=== PATIENT | female | born 1990 | race Two or more races ===

== ENCOUNTER 2019-10-28 22:59 | Emergency (ER) | payer SELFPAY ==
[2019-10-29] MEDS ORDERED: NORMAL SALINE 1000 ML 1,000 ML IV ONE (02:05)
[2019-10-29] MEDS ORDERED: ONDANSETRON HCL INJ/PF 4 MG/2 ML SDV IV ONE (02:06)
[2019-10-29] MEDS ORDERED: ACETAMINOPHEN 325 MG TABLET PO ONE (02:06)
--- NOTE | 2019-10-29 02:11 | ER Document Report ---
ED General - Related Data Home Medications: None <HEATHER REDMAN - Last Filed: 10/29/19 02:06> <ERVIN SIMPSON Alida - Last Filed: 10/29/19 03:42> - General Chief Complaint: Shortness Of Breath Stated Complaint: SHORTNESS OF BREATH, HEADACHE, VOMITING Time Seen by Provider: 10/29/19 01:17 - HPI Notes: Patient is a 28-year-old female who presents to the emergency department for evaluation. She just got back from [place], where she attended her grandfather's . Today she complains of chills, night sweats, chest pain, shortness of breath, back pain, nausea, vomiting, diarrhea, anxiety. She states her chest pain is sharp, associated with some shortness of breath. Is worsened with deep breaths. She states the same about her back pain. She denies any swelling of her legs. She was a recent passenger in a car ride from [place]. She denies any personal or family history of blood clots. She states she has had 4 episodes of nonbloody, nonbilious emesis today. She has had 6 episodes of diarrhea today. She has had chills and night sweats, is unsure as to whether or not she has had any fevers. (HEATHER REDMAN) - Related Data Allergies/Adverse Reactions: No Known Allergies Allergy (Unverified 10/29/19 02:10) Past Medical History - General Information source: Patient - Social History Smoking Status: Current Some Day Smoker Drug Abuse: None Family History: None, Reviewed & Not Pertinent, Other - No family history of blood clots <HEATHER REDMAN - Last Filed: 10/29/19 02:06> Review of Systems - Review of Systems Constitutional: See HPI Cardiovascular: See HPI Respiratory: See HPI Gastrointestinal: See HPI Musculoskeletal: See HPI Neurological/Psychological: See HPI -: Yes All other systems reviewed and negative <HEATHER REDMAN - Last Filed: 10/29/19 02:06> Physical Exam <HEATHER REDMAN - Last Filed: 10/29/19 02:06> - Vital signs Vitals: Temp Pulse Resp BP Pulse Ox 99.0 F 96 16 117/71 100 10/28/19 23:57 10/28/19 23:57 10/28/19 23:57 10/28/19 23:57 10/28/19 23:57 - Notes Notes: This is an anxious appearing 28-year-old female who appears her stated age, no acute distress. Vital signs reviewed, please refer to chart. Head is normocephalic, atraumatic. Pupils equal round, reactive to light. Neck is supple without meningismus. Heart is regular rate and rhythm. Lungs are clear to auscultation bilaterally. Chest wall is tender to palpation, although patient states that it is not the same pain she is experiencing. Abdomen is soft, nontender, normoactive bowel sounds throughout. Extremities without cyanosis, clubbing. Posterior calves are nontender. Peripheral pulses are equal. Skin is warm and dry. Patient is awake, alert, neurological exam is nonfocal. (HEATHER REDMAN) Course <HEATHER REDMAN - Last Filed: 10/29/19 02:06> - Laboratory Result Diagrams: 10/29/19 02:50 10/29/19 02:50 <ERVIN SIMPSON - Last Filed: 10/29/19 03:42> - Re-evaluation Re-evalutation: 10/29/19 02:10 Patient presents to the emergency department for evaluation. She has multiple complaints or concerns. She is mildly tachycardic. She is very anxious. Will check laboratory investigations, chest x-ray. EKG showed only mild tachycardia. Awaiting remainder of her findings. We will give her fluids, Zofran, Tylenol. She is stable, we will continue to monitor. (HEATHER REDMAN) 10/29/19 03:40 Dr. Redman asked me to follow-up with the patient. Patient states that she is feeling much better. Labs show an anemia with a hemoglobin of 10.6 and hematocrit of 31.8. I suspect this is chronic. Chemistries are unremarkable. D-dimer is negative. Patient states that she feels better after receiving Zofran, fluids, and Tylenol. We will send her with Zofran to go home with. Patient is to be tested for COVID-19. She is in agreement with this plan. Follow-up precautions were given. Verbal discharge instructions were given to the patient. They verbalized understanding. They are stable for discharge. (ERVIN SIMPSON) - Vital Signs Vital signs: Temp Pulse Resp BP Pulse Ox 99.0 F 96 16 117/71 100 10/29/19 00:00 10/28/19 23:57 10/28/19 23:57 10/28/19 23:57 10/28/19 23:57 - Laboratory Laboratory results interpreted by me: 10/29/19 10/29/19 02:50 02:50 RBC 3.46 L Hgb 10.6 L Hct 31.8 L Chloride 109 H BUN 6 L Discharge <HEATHER REDMAN - Last Filed: 10/29/19 02:06> <TATIANAERVIN - Last Filed: 10/29/19 03:42> - Discharge Clinical Impression: Suspected COVID-19 virus infection, Shortness of breath, Chills Condition: Stable Disposition: HOME, SELF-CARE Additional Instructions: You were seen today in the emergency department for shortness of breath, chills, and generally not feeling well. You are being tested for COVID-19. Please make sure you self isolate at home until your results are back. The health department will call you with your results. This usually takes 3 to 4 days. If the test is positive, quarantine for 2 weeks. You can take Tylenol for pain. You can also take Zofran as needed for nausea. Prescriptions: Ondansetron [Zofran Odt 4 mg Tablet] 1 - 2 tab PO Q4H PRN #30 tab.rapdis PRN Reason: For Nausea/Vomiting
--- NOTE | 2019-10-29 02:58 | RADIOLOGY REPORT (SQ) ---
CLINICAL INDICATION: dyspnea. TECHNIQUE: A single portable AP view was obtained of the chest at 0235 hours. COMPARISON: None. FINDINGS: The cardiomediastinal silhouette is normal. The lungs are grossly clear. No evidence of effusion or pneumothorax. The visualized bones are unremarkable. IMPRESSION: No evidence of active intrathoracic disease.
[2019-10-29 03:07] LABS: ABSOLUTE LYMPHOCYTES (AUTO) 1.8 10^3/uL (0.5-4.7); ABSOLUTE MONOCYTES (AUTO) 0.3 10^3/uL (0.1-1.4); BASOPHILS % (AUTO) 0.6 % (0-2); EOSINOPHILS % (AUTO) 0.4 % (0-6); HEMATOCRIT 31.8 % (36.0-47.0); HEMOGLOBIN 10.6 g/dL (12.0-15.5); LYMPHOCYTES % (AUTO) 28.8 % (13-45); MEAN CORPUSCULAR HEMOGLOBIN 30.7 pg (27.0-33.4); MEAN CORPUSCULAR HGB CONC 33.4 g/dL (32.0-36.0); MEAN CORPUSCULAR VOLUME 92 fl (80-97); MONOCYTES % (AUTO) 5.3 % (3-13); PLATELET COUNT 222 10^3/uL (150-450); RED BLOOD COUNT 3.46 10^6/uL (3.72-5.28); RED CELL DISTRIBUTION WIDTH 13.4 % (11.5-14.0); SEGMENTED NEUTROPHILS % (AUTO) 64.9 % (42-78); TOTAL CELLS COUNTED % (AUTO) 100 %; WHITE BLOOD COUNT 6.2 10^3/uL (4.0-10.5)
[2019-10-29 03:21] LABS: ALBUMIN 4.3 g/dL (3.5-5.0); ALKALINE PHOSPHATASE 53 U/L (38-126); ANION GAP 8 (5-19); ASPARTATE AMINO TRANSFERASE 15 U/L (14-36); BILIRUBIN,TOTAL 0.5 mg/dL (0.2-1.3); BLOOD UREA NITROGEN 6 mg/dL (7-20); CALCIUM 9.8 mg/dL (8.4-10.2); CARBON DIOXIDE 25 mmol/L (22-30); CHLORIDE 109 mmol/L (98-107); GLUCOSE 98 mg/dL (75-110); POTASSIUM 4.1 mmol/L (3.6-5.0); TOTAL PROTEIN 7.4 g/dL (6.3-8.2)
[2019-10-29 04:03] VITALS: BP 127/112
--- NOTE | 2019-10-30 22:05 | EKG REPORT ---
SEVERITY:- OTHERWISE NORMAL ECG - SINUS TACHYCARDIA : Confirmed by: Dory Shields MD 30-Oct-2019 22:05:40
== END 2019-10-29 04:02 | disposition home or self-care (01) ==
LOC: ER 22:59
DX: R06.02 Shortness of breath (principal); R68.83 Chills (without fever); R61 Generalized hyperhidrosis; R07.9 Chest pain, unspecified; M54.9 Dorsalgia, unspecified; R11.2 Nausea with vomiting, unspecified; R19.7 Diarrhea, unspecified; F41.9 Anxiety disorder, unspecified; R00.0 Tachycardia, unspecified; D64.9 Anemia, unspecified; F17.200 Nicotine dependence, unspecified, uncomplicated; Z20.828 Contact with and (suspected) exposure to other viral communicable diseases
CPT/HCPCS: 93005; 99285; 96361; 96374; 36415; 83690; 85025; 87635; 80053; 85379; 71045; 93010; J2405; J7030; C9803